=== PATIENT | male | born 1940 | race Caucasian/White ===

== ENCOUNTER 2017-10-12 18:50 | Emergency (ER) | payer MEDICARE, BC ==
[~2017-10-12] VITALS: Ht 172.7 cm; Wt 86.2 kg
[2017-10-12 18:55] VITALS: BP 139/70
[2017-10-12] MEDS ORDERED: TDAP [DIPH/PERTUSSIS/TET] 0.5 ML VIAL IM ONE ×2 (19:30→19:43)
[2017-10-12] MEDS ORDERED: LIDOCAINE /MPF 1% VIAL 5 ML VIAL ONE (19:41)
[2017-10-12] MEDS ORDERED: LIDOCAINE 0.5% HCL 50 ML VIAL ONE (19:49)
== END 2017-10-12 21:22 | disposition home or self-care (01) ==
LOC: ER 18:52
DX: S62.632A Displaced fracture of distal phalanx of right middle finger, initial encounter for closed fracture (principal); S61.212A Laceration without foreign body of right middle finger without damage to nail, initial encounter; Z79.82 Long term (current) use of aspirin; W23.0XXA Caught, crushed, jammed, or pinched between moving objects, initial encounter; Y93.89 Activity, other specified; Y92.89 Other specified places as the place of occurrence of the external cause; Y99.8 Other external cause status
CPT/HCPCS: 73140-TC; 90715; A4606; A6402; J3490; Z7610

== ENCOUNTER 2024-10-06 11:36 | Emergency (ER) | payer MEDICARE, BC ==
[~2024-10-06] VITALS: Ht 172.7 cm; Wt 85.7 kg
[2024-10-06 11:53] VITALS: TEMP 96.8
[2024-10-06 13:35] VITALS: BP 105/62; O2SAT 96
== END 2024-10-06 13:30 | disposition home or self-care (01) ==
LOC: ER 11:50
DX: S01.81XA Laceration without foreign body of other part of head, initial encounter (principal); M19.90 Unspecified osteoarthritis, unspecified site; I10 Essential (primary) hypertension; W06.XXXA Fall from bed, initial encounter; Y93.89 Activity, other specified; Y92.89 Other specified places as the place of occurrence of the external cause; Y99.8 Other external cause status

== ENCOUNTER 2024-10-14 11:19 | Emergency (ER) | payer MEDICARE, BC ==
[~2024-10-14] VITALS: Ht 172.7 cm; Wt 87.1 kg
[2024-10-14 12:40] VITALS: BP 123/72; TEMP 98.1; O2SAT 96
== END 2024-10-14 12:41 | disposition home or self-care (01) ==
LOC: ER 11:49
DX: S01.21XD Laceration without foreign body of nose, subsequent encounter (principal); I10 Essential (primary) hypertension; M19.90 Unspecified osteoarthritis, unspecified site; Z48.02 Encounter for removal of sutures; X58.XXXD Exposure to other specified factors, subsequent encounter

== ENCOUNTER 2025-01-13 10:28 | Outpatient (CLI) | payer MEDICARE, BC | END 2025-01-13 23:59 | disposition home health service (06) | LOC: WOU 10:28 | PROVIDERS: ATTEND Podiatrist Foot & Ankle Surgery | DX: S81.811A Laceration without foreign body, right lower leg, initial encounter (principal); X58.XXXA Exposure to other specified factors, initial encounter; Y92.89 Other specified places as the place of occurrence of the external cause; I87.2 Venous insufficiency (chronic) (peripheral); I89.0 Lymphedema, not elsewhere classified; B35.3 Tinea pedis; R60.1 Generalized edema; M79.81 Nontraumatic hematoma of soft tissue; E11.9 Type 2 diabetes mellitus without complications; Z79.85 Long-term (current) use of injectable non-insulin antidiabetic drugs; I10 Essential (primary) hypertension | CPT/HCPCS: 11042; A6207; A4649 ==

== ENCOUNTER 2025-03-10 10:19 | Outpatient (CLI) | payer MEDICARE, BC | END 2025-03-10 23:59 | disposition home health service (06) | LOC: WOU 10:19 | PROVIDERS: ATTEND Podiatrist Foot & Ankle Surgery | DX: I87.312 Chronic venous hypertension (idiopathic) with ulcer of left lower extremity (principal); L97.822 Non-pressure chronic ulcer of other part of left lower leg with fat layer exposed; S81.811D Laceration without foreign body, right lower leg, subsequent encounter; X58.XXXD Exposure to other specified factors, subsequent encounter; I89.0 Lymphedema, not elsewhere classified; I87.2 Venous insufficiency (chronic) (peripheral); B35.3 Tinea pedis; R60.1 Generalized edema; L03.116 Cellulitis of left lower limb; L03.115 Cellulitis of right lower limb; E11.9 Type 2 diabetes mellitus without complications; Z79.85 Long-term (current) use of injectable non-insulin antidiabetic drugs | CPT/HCPCS: 11042; 29581; 11045; A6454 ==